=== PATIENT | female | born 1985 | race American Indian/Alaskan Native ===

== ENCOUNTER 2020-10-26 12:28 | Outpatient (CLI) | payer MEDICAID ==
[2020-10-26] MEDS ORDERED: BETAMET ACET/BETAMET NA PH 6 MG/ML INJ 5 ML MDV IM ONE (12:54)
[2020-10-26] MEDS ORDERED: BETAMET ACET/BETAMET NA PH 6 MG/ML INJ 5 ML MDV IM SCH (13:00)
== END 2020-10-26 13:05 | disposition home or self-care (01) ==
LOC: TRG 12:28 → APU 12:29 → TRG 13:05
PROVIDERS: ATTEND Obstetrics & Gynecology
DX: O47.03 False labor before 37 completed weeks of gestation, third trimester (principal); Z3A.33 33 weeks gestation of pregnancy
CPT/HCPCS: 96372; J0702; 96360

== ENCOUNTER 2020-10-27 12:40 | Outpatient (CLI) | payer MEDICAID ==
[2020-10-27] MEDS ORDERED: BETAMET ACET/BETAMET NA PH 6 MG/ML INJ 5 ML MDV IM NR (13:30)
== END 2020-10-27 13:55 | disposition home or self-care (01) ==
LOC: TRG 12:40 → APU 12:41 → TRG 13:55
PROVIDERS: ATTEND Obstetrics & Gynecology
DX: O47.03 False labor before 37 completed weeks of gestation, third trimester (principal); O99.513 Diseases of the respiratory system complicating pregnancy, third trimester; J45.909 Unspecified asthma, uncomplicated; O10.913 Unspecified pre-existing hypertension complicating pregnancy, third trimester; O99.283 Endocrine, nutritional and metabolic diseases complicating pregnancy, third trimester; E03.9 Hypothyroidism, unspecified; Z3A.33 33 weeks gestation of pregnancy
CPT/HCPCS: 96372; J0702

== ENCOUNTER 2020-11-06 14:22 | Inpatient (IN) | payer MEDICAID ==
[2020-11-06] MEDS ORDERED: MINERAL OIL 30 ML ORAL LIQD PO PRN (16:25)
[2020-11-06] MEDS ORDERED: TERBUTALINE 1 MG/1 ML INJ SUB-Q PRN (16:25)
[2020-11-06] MEDS ORDERED: BUTORPHANOL 2 MG/1 ML INJ IV PRN (16:25)
[2020-11-06] MEDS ORDERED: ONDANSETRON 4 MG/2 ML INJ IV PRN (16:25)
[2020-11-06] MEDS ORDERED: LIDOCAINE (2%) 20 MG/1 ML VIAL 20 ML MDV INFILTRATI ONE (16:25)
[2020-11-06] MEDS ORDERED: ePHEDrine SULFATE 50 MG/1 ML INJ IV PRN ×2 (16:25→20:11)
[2020-11-06] MEDS ORDERED: miSOPROStol 200 MCG TAB PR PRN (16:25)
[2020-11-06] MEDS ORDERED: METHYLERGONOVINE MALEATE 0.2 MG/ML VIAL IM PRN (16:25)
[2020-11-06] MEDS ORDERED: AMPICILLIN/NS 2 GM/100 ML 2 GM/100 ML BAG IV ONE (16:30)
[2020-11-06 16:43] LABS: Hemoglobin 11.9 gm/dl (10.1-14.3); Mean Corpuscular HGB Conc 36 % (30-34); Mean Corpuscular Volume 82 fl (79-97); Platelet Count 252 K/mm3 (140-440); Red Blood Count 4.03 M/mm3 (3.65-5.03); Red Cell Distribution Width 16.1 % (13.2-15.2)
[2020-11-06] MEDS ORDERED: OXYTOCIN DRIP 30 UNITS/500 ML BAG IV SCH ×2 (17:00)
[2020-11-06] MEDS: LACTATED RINGERS 1,000 ML IV SCH ×3 (17:02→21:09)
[2020-11-06] MEDS ORDERED: NalbUPHINE 10 MG/1 ML INJ IV PRN (20:11)
[2020-11-06] MEDS ORDERED: diphenhydrAMINE 50 MG/ML VIAL IV PRN (20:11)
[2020-11-06] MEDS ORDERED: NALOXONE 2 MG/2 ML INJ IV PRN (20:11)
[2020-11-06] MEDS ORDERED: AMPICILLIN/NS 1 GM/50 ML 1 GM/50 ML BAG IV SCH (20:30)
--- NOTE | 2020-11-06 20:50 | Anesthesia Consultation ---
Anesthesia Consult and Med Hx Date of service: 11/06/20 - Airway Anesthetic Teeth Evaluation: Good ROM Head & Neck: Adequate Mental/Hyoid Distance: Adequate Mallampati Class: Class II Intubation Access Assessment: Probably Good - Pulmonary Exam CTA: Yes - Cardiac Exam Cardiac Exam: RRR - Pre-Operative Health Status ASA Pre-Surgery Classification: ASA2 Proposed Anesthetic Plan: Epidural - Pulmonary Hx Smoking: Yes (Smokes AwesomePieceanna often) Hx Asthma: Yes (last used inhaler 6 yrs ago) COPD: No Hx Pneumonia: No Hx Sleep Apnea: No - Cardiovascular System Hx Hypertension: Yes (CHTN diagnosed 5 yrs ago) Hx Heart Attack/AMI: No Hx Angina: No - Central Nervous System Hx Seizures: No Hx Psychiatric Problems: Yes (depression-was taking Wellbutrin before ) - Gastrointestinal Hx Gastroesophageal Reflux Disease: No - Endocrine Hx Renal Disease: No Hx End Stage Renal Disease: No Hx Insulin Dependent Diabetes: No Hx Non-Insulin Dependent Diabetes: No Hx Hypothyroidism: Yes (taking levothyroxine) Hx Hyperthyroidism: No - Hematic Hx Anemia: No Hx Sickle Cell Disease: No - Other Systems Hx Alcohol Use: No Hx Substance Use: Yes (MAURIJUANA LAST USED 2 MONTHS AGO)
--- NOTE | 2020-11-06 20:55 | Progress Note ---
Labor Epidural - Labor Epidural Start Time: 20:21 Stop Time: 20:50 Performed by:: MENG LAWLER Procedure: Patient is requesting a laboring epidural for laboring pain. Patient IDed, H&P reviewed, all questions and concerns were answered, and consent was signed. Timeout was performed at bedside. Patient in sitting position. Sterile prep and drape was performed. 3ml of 1% lidocaine skin wheal at L[2]- L [3]. 18- gauge Touhy epidural needle was advanced without success. 3ml of 1% lidocaine skin wheal at L[3]- L [4]. 18-gauge Touhy epidural needle was advanced to loss of resistance with air technique.Negative CSF negative blood. Epidural catheter advanced to [14] centimeters. [-] Aspiration [-] test dose. Sterile dressing applied. Patient tolerated procedure.
[2020-11-06] MEDS ORDERED: fentaNYL-BUPIV 2 MCG/ML-0.125% 200 MCG/100 ML BAG EPIDURAL SCH (21:00)
[2020-11-07] MEDS ORDERED: diphenhydrAMINE 25 MG CAP PO PRN (00:01)
[2020-11-07] MEDS ORDERED: HYDROCORTISONE 25 MG RECTAL SUPP PR PRN (00:01)
[2020-11-07] MEDS ORDERED: WITCH HAZEL/ GLYCERIN PAD TP PRN (00:01)
--- NOTE | 2020-11-07 00:12 | History and Physical Report ---
History of Present Illness Date of examination: 11/07/20 Date of admission: 11/06/20 14:31 Chief complaint: My water broke today at 1:00PM History of present illness: Early entry to care, 1st and 2nd trimesters complicated by Hyperemesis, Co-managed with [facility] due to hx of Thyroid CA, Asthma, CHTN, and a hx of PTD. Also co-managed with Cardiology, Labetolol started at 19 weeks. Also taking, Synthroid, ASA 81mg, Wellbutrin, and Valayclovir. labor concern at 33 2/7 weeks; Received Betamethsome Series. 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 Family/Genetic History: diabetes, hypertension Social history: no significant social history, single, smoking (hx of THC use) - Obstetrical History Expected Date of Delivery: 12/12/20 Actual Gestation: 35 Week(s) 0 Day(s) : 5 Para: 3 Hx # Term Pregnancies: 1 Number of Pregnancies: 2 Induced : 1 Number of Living Children: 3 #1 Gender: Male year: 2,[birth year] Birthweight: 2.778 kg Method of Delivery: Vaginal Gestational age at delivery: 37 Complications: none #2 Infant Gender: Female year: 2,[birth year] Birthweight: 2.268 kg Method of Delivery: Vaginal Gestational age at delivery: 35 Complications: none #3 Infant Gender: Female year: 2,018 Birthweight: 1.899 kg Method of Delivery: Vaginal Gestational age at delivery: 34 Medications and Allergies Allergies Allergy/AdvReac Type Severity Reaction Status Date / Time No Known Allergies Allergy Verified 04/27/14 13:16 Home Medications Medication Instructions Recorded Confirmed Last Taken Type No Known Home Medications [No 04/10/15 04/10/15 Unknown History Reported Home Medications] Active Meds: Active Medications Hydrocodone Bitart/Acetaminophen (Hydrocodone/Acetaminophen 5-325 Mg Tab) 2 each PO Q6H PRN PRN Reason: Pain, Moderate (4-6) Bisacodyl (Bisacodyl 10 Mg Rect Supp) 10 mg LA BID PRN PRN Reason: Constipation Butorphanol Tartrate (Butorphanol 2 Mg/1 Ml Inj) 2 mg IV Q2H PRN PRN Reason: Pain , Severe (7-10) Last Admin: 11/06/20 18:26 Dose: 2 mg Documented by: Diphenhydramine HCl (Diphenhydramine 50 Mg/Ml Vial) 12.5 mg IV Q2H PRN PRN Reason: Itching Diphenhydramine HCl (Diphenhydramine 25 Mg Cap) 25 mg PO Q6H PRN PRN Reason: Itching Ephedrine Sulfate (Ephedrine Sulfate 50 Mg/1 Ml Inj) 10 mg IV Q2M PRN PRN Reason: Hypotension Hydrocortisone Acetate (Hydrocortisone 25 Mg Rectal Supp) 25 mg LA BID PRN PRN Reason: Hemorrhoids Oxytocin/Sodium Chloride (Pitocin/Ns 30 Unit/500ml) 30 units in 500 mls @ 2 mls/hr IV TITR PADMINI; Protocol Last Admin: 11/06/20 22:16 Dose: 2 ml/hr, 2 mls/hr Documented by: Lactated Ringer's (Lactated Ringers) 1,000 mls @ 125 mls/hr IV DIRECT PADMINI Last Admin: 11/06/20 21:09 Dose: 1,200 mls/hr Documented by: Oxytocin/Sodium Chloride (Pitocin/Ns 30 Unit/500ml) 30 units in 500 mls @ 40 mls/hr IV TITR PADMINI; Protocol Ampicillin Sodium (Ampicillin/Ns 1 Gm/50 Ml) 1 gm in 50 mls @ 100 mls/hr IV Q4H PADMINI; Protocol Last Admin: 11/06/20 21:33 Dose: 100 mls/hr Documented by: Fentanyl/Bupivacaine/Sodium Chlor (Fentanyl-Bupiv 2 Mcg/Ml-0.125%) 200 mcg in 100 mls @ 12 mls/hr EPIDURAL TITR PADMINI; Protocol Last Admin: 11/06/20 21:24 Dose: 12 mls/hr Documented by: Ibuprofen (Ibuprofen 600 Mg Tab) 600 mg PO Q6H PADMINI Methylergonovine Maleate (Methylergonovine Maleate 0.2 Mg/Ml Vial) 0.2 mg IM ONCE PRN PRN Reason: Uterine Bleeding Mineral Oil (Mineral Oil 30 Ml Oral Liqd) 30 ml PO QHS PRN PRN Reason: Constipation Misoprostol (Misoprostol 200 Mcg Tab) 800 mcg LA ONCE PRN PRN Reason: Uterine Bleeding Nalbuphine HCl (Nalbuphine 10 Mg/1 Ml Inj) 2.5 mg IV Q2H PRN PRN Reason: Itching Naloxone HCl (Naloxone 2 Mg/2 Ml Inj) 0.2 mg IV Q5M PRN PRN Reason: Respiratory sedation Ondansetron HCl (Ondansetron 4 Mg/2 Ml Inj) 4 mg IV Q8H PRN PRN Reason: Nausea And Vomiting Sodium Chloride (Sodium Chloride 0.9% 10 Ml Flush Syringe) 10 ml IV PRN NR Terbutaline Sulfate (Terbutaline 1 Mg/1 Ml Inj) 0.25 mg SUB-Q ONCE PRN PRN Reason: Hyperstimulation/Hypertonicity Witch Santa/Glycerin (Witch Santa/ Glycerin Pad) 1 each TP PRN PRN PRN Reason: Hemorrhoid/cleansing/soothing Review of Systems All systems: negative - Vital Signs Vital signs: Vital Signs Temp Resp 98.4 F 20 11/06/20 15:30 11/06/20 15:30 Temp Pulse Resp BP Pulse Ox 99.1 F 106 H 20 166/107 99 11/06/20 17:30 11/07/20 00:03 11/06/20 15:30 11/06/20 23:48 11/07/20 00:03 - Physical Exam Breasts: Positive: normal Cardiovascular: Regular rate Lungs: Positive: Clear to auscultation, Normal air movement Abdomen: Positive: normal appearance, soft, normal bowel sounds Genitourinary (Female): Positive: normal external genitalia, normal perenium Vagina: Positive: normal moisture Uterus: Positive: enlarged Anus/Rectum: Positive: normal perianal skin - Obstetrical FHR: category 1 Uterine Contraction Monitor Mode: External Cervical Dilatation: 3 (leaking a large amount of clear fluid) Cervical Effacement Percentage: 60 station: -3 Uterine Contraction Pattern: Regular Uterine Tone Measurement Phase: Resting Uterine Contraction Intensity: Moderate Results Result Diagrams: 11/06/20 15:50 Abnormal lab results 11/06/20 Range/Units 15:50 WBC 11.6 H (4.5-11.0) K/mm3 MCHC 36 H (30-34) % RDW 16.1 H (13.2-15.2) % All other labs normal. Assessment and Plan A: IUP @ 34 6/7 Weeks Category I Tracing PROM GBS Unknown CHTN P: Admit to L&D Per Routine Orders GBS Prophylaxis Pitocin Augmentation
--- NOTE | 2020-11-07 00:28 | Procedure Note ---
OB Delivery Note - Delivery Date of Delivery: 11/06/20 (2341) Surgeon: TRAVIS SAEED Estimated blood loss: 100cc - Vaginal Delivery presentation: vertex Delivery position: OA Intrapartum events: labor-<37 weeks, PROM->1hr before delivery Delivery induction: none Delivery augmentation: pitocin Delivery monitor: external FHT, external uterine Route of delivery: Delivery placenta: spontaneous Delivery cord: 3 umbilical vessels Episiotomy: none Delivery laceration: none Anesthesia: epidural Delivery comments: of a live 5'4 male infant over a intact perineum under epidural anesthesia with Apgars of 8 and 9 at 2341 on 11/06/2020. Cord double clamped and cut and placed on warmer to awaiting NICU team due to delivery. Spontaneous delivery of placenta complete and intact with Fraga side presenting at 2346. Fundus is firm and midline located 4 below the U. Lochia is scant. Cord blood gasses collected X2. Cord blood also collected. Placenta to pathology. GBS Prophylaxis x 2.
[2020-11-07] MEDS: HYDROcodone/ACETAMINOPHEN 5-325 MG TAB PO PRN ×3 (02:55→18:43)
[2020-11-07] MEDS: IBUPROFEN 600 MG TAB PO SCH ×3 (06:34→20:45)
[2020-11-07] MEDS: LEVOTHYROXINE 150 MCG TAB PO SCH (06:34)
--- NOTE | 2020-11-07 10:43 | Discharge Summary ---
Providers - Providers Date of Admission: 11/06/20 14:31 Date of discharge: 11/08/20 Attending physician: NAFISA HANCOCK JR, MD Primary care physician: NAFISA HANCOCK JR, MD Hospitalization Reason for admission: active labor Delivery: Episiotomy: none Laceration: none Other procedures: none complications: none Discharge diagnosis: other (Hypothyroidism; HTN), delivery baby: male Hospital course: See admission H & P; delivery summary and PP progress notes Condition at discharge: Good Disposition: DC-01 TO HOME OR SELFCARE - Discharge Diagnoses (1) Status post normal vaginal delivery Status: Acute (2) Hypothyroidism Status: Acute (3) Hypertension Status: Acute Plan - Discharge Medications Prescriptions: labetaloL [Labetalol 200mg TAB] 200 mg PO BID 14 Days #28 tablet - Provider Discharge Summary Activity: routine, no sex for 6 weeks, no heavy lifting 4 weeks, no strenuous exercise Diet: other (Iron rich diet) Instructions: routine Additional instructions: [] Smoking cessation referral if applicable(refer to patient education folder for contact #) [] Refer to [facility] Booklet Call your doctor immediately for: * Fever > 100.5 * Heavy vaginal bleeding ( >1 pad per hour) * Severe persistent headache * Shortness of breath * Reddened, hot, painful area to leg or breast * Follow up at office in 7 days for B/P check - Follow up plan Follow up: NAFISA HANCOCK JR, MD [Primary Care Provider] - 7 Days
--- NOTE | 2020-11-07 12:47 | Post Anesthesia Evaluation ---
- Post Anesthesia Evaluation Patient Participated: Yes Airway Patent: Yes Stable Respiratory Function: Yes Nausea/Vomiting: No Temp > 96.8F: Yes Pain Manageable: Yes Adequeate Hydration: Yes Anesthesia Complications: No Block Receding Appropriately: Yes Patient on Ventilator: No
[2020-11-07 14:12] LABS: Hemoglobin 11.7 gm/dl (10.1-14.3)
[2020-11-08] MEDS: HYDROcodone/ACETAMINOPHEN 5-325 MG TAB PO PRN ×3 (01:12→19:14)
[2020-11-08] MEDS: IBUPROFEN 600 MG TAB PO SCH ×4 (03:28→19:15)
[2020-11-08] MEDS: LEVOTHYROXINE 150 MCG TAB PO SCH (05:17)
[2020-11-09] MEDS: IBUPROFEN 600 MG TAB PO SCH ×2 (03:53→10:23)
[2020-11-09] MEDS: HYDROcodone/ACETAMINOPHEN 5-325 MG TAB PO PRN (03:54)
[2020-11-09] MEDS: LEVOTHYROXINE 150 MCG TAB PO SCH (05:34)
[2020-11-09 09:17] VITALS: BP 119/79
== END 2020-11-09 11:24 | disposition home or self-care (01) | DRG 774 ==
LOC: TRG 14:22 → APU 14:24 → TRG 14:30 → LD 14:31 → OB 11-07 01:50
PROVIDERS: ADMIT Obstetrics & Gynecology; ATTEND Obstetrics & Gynecology
PROC: 10E0XZZ Delivery of Products of Conception, External Approach (ICD-10-PCS; principal; 2020-11-06)
PROC: 3E0R3BZ Introduction of Anesthetic Agent into Spinal Canal, Percutaneous Approach (ICD-10-PCS; 2020-11-06)
PROC: 00HU33Z Insertion of Infusion Device into Spinal Canal, Percutaneous Approach (ICD-10-PCS; 2020-11-06)
DX: O42.013 Preterm premature rupture of membranes, onset of labor within 24 hours of rupture, third trimester (principal); O10.92 Unspecified pre-existing hypertension complicating childbirth; O99.344 Other mental disorders complicating childbirth; F32.9 Major depressive disorder, single episode, unspecified; O99.284 Endocrine, nutritional and metabolic diseases complicating childbirth; O98.32 Other infections with a predominantly sexual mode of transmission complicating childbirth; A60.09 Herpesviral infection of other urogenital tract; O99.52 Diseases of the respiratory system complicating childbirth; J45.909 Unspecified asthma, uncomplicated; K21.9 Gastro-esophageal reflux disease without esophagitis; Z3A.35 35 weeks gestation of pregnancy; Z37.0 Single live birth
CPT/HCPCS: 36415; 82805; 85014; 85018; 85027; 86592; 86850; 86900; 86901; 88307; G0378; J0290; J0595; J2590; J7120; U0003

== ENCOUNTER 2020-11-09 20:40 | Observation (INO) | payer MEDICAID, OTHER ==
--- NOTE | 2020-11-09 20:47 | Event Note ---
ED Screening Note ED Screening Note: post delivered this week htn known pre eclampsia a/o This initial assessment/diagnostic orders/clinical plan/treatment(s) is/are subject to change based on patients health status, clinical progression and re- assessment by fellow clinical providers in the ED. Further treatment and workup at subsequent clinical providers discretion. Patient/guardian urged not to elope from the ED as their condition may be serious if not clinically assessed and managed. Initial orders include: eval for eclampsia
[2020-11-09 21:29] LABS: Bacteria,Urine 1+ /HPF (Negative); Bilirubin,Urine NEG (Negative); Blood,Urine LG (Negative); Color,Urine Straw (Yellow); Protein,Urine <15 mg/dL mg/dL (Negative); Urobilinogen,Urine < 2.0 mg/dL (<2.0)
[2020-11-09 21:37] LABS: Basophils % (Auto) 0.4 % (0.0-1.8); Eosinophils # (Auto) 0.1 K/mm3 (0.0-0.4); Hematocrit 35.2 % (30.3-42.9); Hemoglobin 12.1 gm/dl (10.1-14.3); Lymphocytes # (Auto) 2.1 K/mm3 (1.2-5.4); Lymphocytes % (Auto) 21.1 % (13.4-35.0); Mean Corpuscular HGB Conc 35 % (30-34); Mean Corpuscular Volume 83 fl (79-97); Monocytes # (Auto) 0.7 K/mm3 (0.0-0.8); Monocytes % (Auto) 7.1 % (0.0-7.3); Platelet Count 247 K/mm3 (140-440); Red Blood Count 4.25 M/mm3 (3.65-5.03); Red Cell Distribution Width 16.2 % (13.2-15.2)
--- NOTE | 2020-11-09 21:43 | XRay Report ---
CHEST PA AND LATERAL VIEWS INDICATION: MAIN. COMPARISON: None FINDINGS: Support devices: None Heart: Normal Lungs/Pleura: No acute pulmonary or pleural findings. IMPRESSION: 1. No active disease. Signer Name: Aldo Barnes MD Signed: 11/09/2020 9:39 PM Workstation Name: [id number]
[2020-11-09 21:57] LABS: Uric Acid 4.3 mg/dL (3.5-7.6)
[2020-11-09 21:58] LABS: Alanine Aminotransferase 16 units/L (7-56); Albumin 3.4 g/dL (3.9-5); Blood Urea Nitrogen 7 mg/dL (7-17); Calcium 9.3 mg/dL (8.4-10.2); Hemolysis Index 2
[2020-11-09 22:02] LABS: BUN/Creatinine Ratio 12
[2020-11-10] MEDS ORDERED: MAGNESIUM SULFATE 4 GM/100 ML BAG IV ONE (01:55)
[2020-11-10] MEDS ORDERED: CALCIUM GLUCONATE 1000 MG/10 ML INJ IV ONE (01:55)
[2020-11-10] MEDS ORDERED: LACTATED RINGERS 1,000 ML IV SCH (02:00)
[2020-11-10] MEDS: ACETAMINOPHEN 325 MG TAB PO PRN ×3 (02:30→18:08)
[2020-11-10] MEDS: MAGNESIUM SULFATE 40GM/1000ML 40 GM/1,000 ML BAG IV SCH ×2 (02:55→21:51)
--- NOTE | 2020-11-10 08:08 | History and Physical Report ---
History of Present Illness Date of examination: 11/10/20 Date of admission: 11/10/20 Chief complaint: Pt presented to [facility] ob triage with c/o elevated b/p, eldridge,and dizziness. History of present illness: 35 y/o presented to [facility] ob triage with c/o elevated b/ps 160s/100s, eldridge, and dizziness. Pt has a Hx of a on 11/06/20 at [facility]. She was d/c'd home in stable condition on Labetalol 200mg po bid. She has a med hx of CHTN, preeclampsia, thyroid ca, hypothyroidism, GERD, asthma, abnormal pap, HSV II and depression. Surgical hx of dietician uterine surg 2013, thyroid surg 2014, Ca surg (thyroid) 2014, breast aug,buttocks, and lipo surgery. Social hx of THC abuse. Family hx of DM and HTN. Pt's b/p was 158/99 in triage. She was admitted to L&D and started on MgS04. POC was notified of pt's status and agreed with plan. 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 Family/Genetic History: diabetes, hypertension Social history: single, full code, other (thc abuse) - Obstetrical History : 6 Para: 4 Spontaneous Abortions: 1 Induced : 1 Medications and Allergies Allergies Allergy/AdvReac Type Severity Reaction Status Date / Time No Known Allergies Allergy Verified 04/27/14 13:16 Home Medications Medication Instructions Recorded Confirmed Last Taken Type Levothyroxine [Synthroid] 150 mcg PO DAILY@0600 tablet 11/07/20 Unknown Rx labetaloL [Labetalol 200mg TAB] 200 mg PO BID 14 Days #28 tablet 11/07/20 Unknown Rx Active Meds: Active Medications Acetaminophen (Acetaminophen 325 Mg Tab) 650 mg PO Q6H PRN PRN Reason: Pain, Mild (1-3) Last Admin: 11/10/20 02:30 Dose: 650 mg Documented by: Lactated Ringer's (Lactated Ringers) 1,000 mls @ 125 mls/hr IV DIRECT PADMINI Last Admin: 11/10/20 02:15 Dose: 75 mls/hr Documented by: Magnesium Sulfate (Magnesium Sulfate 40gm/1000ml) 40 gm in 1,000 mls @ 50 mls/hr IV DIRECT PADMINI Last Admin: 11/10/20 02:55 Dose: 2 gm/hr, 50 mls/hr Documented by: Labetalol HCl (Labetalol 200 Mg Tab) 200 mg PO BID [facility] Levothyroxine Sodium (Levothyroxine 150 Mcg Tab) 150 mcg PO DAILY@0600 [facility] Review of Systems All systems: negative Eyes: deferred Ears, nose, mouth and throat: deferred Breasts: normal Genitourinary: normal appearance, vaginal bleeding Rectal Exam: deferred - Vital Signs Vital signs: Vital Signs Pulse Resp BP Pulse Ox 89 16 158/99 98 11/09/20 23:02 11/09/20 23:02 11/09/20 23:02 11/09/20 23:02 Temp Pulse Resp BP Pulse Ox 97.9 F 91 H 16 127/86 95 11/10/20 07:50 11/10/20 08:00 11/10/20 07:50 11/10/20 07:50 11/10/20 08:00 - Physical Exam Breasts: Positive: normal Abdomen: Positive: normal appearance, soft, normal bowel sounds Genitourinary (Female): Positive: normal external genitalia, normal perenium Vulva: both: normal Vagina: Positive: normal moisture Uterus: Positive: normal size, normal contour Anus/Rectum: Positive: normal perianal skin Extremities: Positive: normal Results Result Diagrams: 11/09/20 21:01 11/09/20 21:01 Abnormal lab results 11/09/20 11/09/20 11/09/20 Range/Units 21:01 21:01 Unknown MCHC 35 H (30-34) % RDW 16.2 H (13.2-15.2) % Seg Neutrophils % 70.4 H (40.0-70.0) % Albumin 3.4 L (3.9-5) g/dL Ur Specific [place] 1.002 L (1.003-1.030) All other labs normal. Assessment and Plan A: S/P CHTN R/O preeclampsia Thyroid ca Asthma, hx depression HSV II P: Admit to L&D PIH labs Start MgS04 per protocal Mg levels q6h Monitor b/ps Continue Labetalol as prescribed POC agrees with plan - Patient Problems (1) Chronic hypertension Current Visit: Yes Status: Acute
[2020-11-10] MEDS: LEVOTHYROXINE 150 MCG TAB PO SCH (09:30)
[2020-11-11] MEDS: ACETAMINOPHEN 325 MG TAB PO PRN ×2 (05:51→10:01)
[2020-11-11] MEDS: LEVOTHYROXINE 150 MCG TAB PO SCH (05:52)
--- NOTE | 2020-11-11 10:49 | Progress Note ---
Assessment and Plan A: preeclampsia and chronic hypertension. S/P 5 days ago. BPs stable on Labetalol. P: Continue Labetalol 200 mg po BID. Monitor BPs. Anticipate discharge home in 24-48 hours if doing well. Subjective - Subjective Date of service: 11/11/20 Principal diagnosis: preeclampsia; chronic hypertension Interval history: Magnesium Sulfate was stopped earlier this morning; patient is now on the mother baby unit. Patient reports: appetite normal, voiding normally, pain well controlled, flatus, ambulating normally, no dizzy ambulation, no nauseated Objective - Vital Signs Latest vital signs: Vital Signs Temp Pulse Resp BP BP Pulse Ox 11/11/20 10:30 123/84 11/11/20 08:29 97.6 F 91 H 18 123/81 97 11/11/20 05:51 20 11/11/20 05:15 98.2 F 76 20 135/89 99 11/11/20 04:17 82 125/85 11/11/20 04:01 82 135/91 11/11/20 02:46 85 99 11/11/20 02:41 88 97 11/11/20 02:36 86 98 11/11/20 02:31 91 H 100 11/11/20 02:26 86 97 11/11/20 02:25 86 91 11/11/20 02:21 86 93 11/11/20 02:19 88 92 11/11/20 02:17 83 133/84 11/11/20 02:16 87 97 11/11/20 02:13 110 H 91 11/11/20 02:11 82 98 11/11/20 02:06 82 99 11/11/20 02:01 84 99 11/11/20 01:56 83 100 11/11/20 01:51 97 H 92 11/11/20 01:46 80 96 11/11/20 01:41 97 H 94 11/11/20 01:40 98 H 94 11/11/20 01:36 83 98 11/11/20 01:31 85 99 11/11/20 01:26 80 99 11/11/20 01:21 84 97 11/11/20 01:17 88 131/74 93 11/11/20 01:16 82 96 11/11/20 01:11 79 97 11/11/20 01:06 82 96 11/11/20 01:02 89 94 11/11/20 01:01 85 96 11/11/20 00:56 83 96 11/11/20 00:51 85 95 11/11/20 00:47 80 93 11/11/20 00:46 80 96 11/11/20 00:41 80 96 11/11/20 00:36 80 96 11/11/20 00:31 82 96 11/11/20 00:26 80 96 11/11/20 00:21 79 97 11/11/20 00:17 78 120/80 11/11/20 00:16 81 97 11/11/20 00:11 80 97 11/11/20 00:06 79 97 11/11/20 00:01 78 98 11/10/20 23:56 80 98 11/10/20 23:51 83 98 11/10/20 23:46 84 100 11/10/20 23:41 87 100 11/10/20 23:36 84 100 11/10/20 23:31 87 99 11/10/20 23:26 87 98 11/10/20 23:21 82 98 11/10/20 23:17 86 129/86 11/10/20 23:16 90 90 11/10/20 23:15 83 94 11/10/20 23:11 92 H 96 11/10/20 23:06 89 98 11/10/20 23:01 89 98 11/10/20 22:56 90 99 11/10/20 22:51 89 100 11/10/20 22:46 90 100 11/10/20 22:41 89 98 11/10/20 22:36 88 99 11/10/20 22:30 87 99 11/10/20 22:26 88 99 11/10/20 22:21 87 99 11/10/20 22:17 90 129/80 11/10/20 22:16 89 98 11/10/20 22:11 90 99 11/10/20 22:06 87 99 11/10/20 22:01 86 92 11/10/20 22:00 72 91 11/10/20 21:56 86 99 11/10/20 21:50 88 133/86 99 11/10/20 21:47 98.1 F 18 11/10/20 21:46 87 99 11/10/20 21:41 85 99 11/10/20 21:36 87 100 11/10/20 21:31 86 96 11/10/20 21:26 87 100 11/10/20 21:21 91 H 99 11/10/20 21:17 88 133/86 11/10/20 21:15 95 H 99 11/10/20 21:11 90 99 11/10/20 21:06 98 H 98 11/10/20 21:01 95 H 99 11/10/20 20:56 99 H 98 11/10/20 20:51 94 H 99 11/10/20 20:46 97 H 98 11/10/20 20:41 93 H 95 11/10/20 20:38 95 H 93 11/10/20 20:36 94 H 98 11/10/20 20:31 91 H 99 11/10/20 20:25 94 H 100 11/10/20 20:23 84 85 11/10/20 20:20 94 H 97 11/10/20 20:17 88 132/92 11/10/20 20:16 90 94 11/10/20 20:10 94 H 98 11/10/20 20:06 96 H 97 11/10/20 20:02 93 H 88 11/10/20 20:00 94 H 98 11/10/20 19:56 90 98 11/10/20 19:50 99 H 98 11/10/20 19:46 93 H 97 11/10/20 19:40 95 H 97 11/10/20 19:35 96 H 98 11/10/20 19:31 97 H 99 11/10/20 19:26 96 H 99 11/10/20 19:21 96 H 100 11/10/20 19:18 100 H 93 11/10/20 19:17 93 H 129/83 11/10/20 19:16 95 H 100 11/10/20 19:11 94 H 99 11/10/20 19:06 95 H 100 11/10/20 19:00 93 H 100 11/10/20 18:55 88 99 11/10/20 18:51 95 H 94 11/10/20 18:50 91 H 94 11/10/20 18:46 87 140/90 99 11/10/20 18:40 94 H 95 11/10/20 18:36 91 H 97 11/10/20 18:31 91 H 100 11/10/20 18:26 91 H 100 11/10/20 18:20 87 95 11/10/20 18:17 80 163/96 11/10/20 18:15 88 88 11/10/20 18:14 89 84 11/10/20 18:10 93 H 100 11/10/20 18:09 94 H 85 11/10/20 18:05 89 99 11/10/20 18:00 88 100 11/10/20 17:56 92 H 94 11/10/20 17:55 95 H 98 11/10/20 17:51 91 H 84 11/10/20 17:50 88 90 11/10/20 17:46 89 100 11/10/20 17:40 82 100 11/10/20 17:36 94 H 86 11/10/20 17:34 89 93 11/10/20 17:30 92 H 100 11/10/20 17:26 88 91 11/10/20 17:21 91 H 100 11/10/20 17:18 72 148/93 77 L 11/10/20 17:15 90 98 11/10/20 17:10 91 H 98 11/10/20 17:05 92 H 99 11/10/20 17:00 88 99 11/10/20 16:55 98 H 99 11/10/20 16:51 95 H 99 11/10/20 16:49 88 88 11/10/20 16:45 90 99 11/10/20 16:40 91 H 98 11/10/20 16:36 89 100 11/10/20 16:35 88 77 L 11/10/20 16:31 90 100 11/10/20 16:26 102 H 92 11/10/20 16:20 95 H 100 11/10/20 16:17 95 H 114/65 11/10/20 16:16 92 H 100 11/10/20 16:11 94 H 100 11/10/20 16:05 91 H 96 11/10/20 16:00 91 H 99 11/10/20 15:56 88 100 11/10/20 15:51 87 99 11/10/20 15:46 86 99 11/10/20 15:41 90 95 11/10/20 15:35 85 98 11/10/20 15:30 84 97 11/10/20 15:26 86 98 11/10/20 15:20 86 99 11/10/20 15:17 83 114/73 11/10/20 15:16 84 98 11/10/20 15:10 85 98 11/10/20 15:06 83 98 11/10/20 15:00 83 97 11/10/20 14:56 83 98 11/10/20 14:50 83 99 11/10/20 14:45 85 100 11/10/20 14:40 86 98 11/10/20 14:36 89 98 11/10/20 14:31 88 96 11/10/20 14:25 85 97 11/10/20 14:21 90 95 11/10/20 14:17 85 124/73 11/10/20 14:15 90 98 11/10/20 14:11 94 H 97 11/10/20 14:05 93 H 97 11/10/20 14:00 98 H 95 11/10/20 13:59 93 H 94 11/10/20 13:55 96 H 96 11/10/20 13:50 85 96 11/10/20 13:45 86 97 11/10/20 13:41 97 H 97 11/10/20 13:36 98 H 97 11/10/20 13:30 98 H 97 11/10/20 13:25 97 H 98 11/10/20 13:20 101 H 98 11/10/20 13:17 96 H 108/65 11/10/20 13:15 98 H 98 11/10/20 13:10 96 H 98 11/10/20 13:06 99 H 99 11/10/20 13:00 94 H 99 11/10/20 12:55 90 99 11/10/20 12:51 93 H 94 11/10/20 12:49 91 H 91 11/10/20 12:45 93 H 100 11/10/20 12:39 93 H 100 11/10/20 12:35 95 H 100 11/10/20 12:30 95 H 100 11/10/20 12:24 91 H 100 11/10/20 12:19 88 100 11/10/20 12:17 86 125/78 11/10/20 12:14 88 100 11/10/20 12:09 88 97 11/10/20 12:05 94 H 99 11/10/20 11:59 90 96 01/01/21 11:54 84 100 11/10/20 11:51 86 86 11/10/20 11:49 83 100 11/10/20 11:44 88 99 11/10/20 11:39 85 100 11/10/20 11:35 89 100 11/10/20 11:29 88 99 11/10/20 11:24 83 99 11/10/20 11:19 90 99 11/10/20 11:17 82 131/83 11/10/20 11:14 86 99 11/10/20 11:09 86 99 11/10/20 11:04 85 100 11/10/20 10:59 88 99 11/10/20 10:54 83 99 11/10/20 10:49 89 99 Intake and Output 11/10/20 11/11/20 11/11/20 23:59 07:59 15:59 Intake Total 1306.667 240 Output Total 2800 1500 Balance -1493.333 -1260 Intake: IV 946.667 MAGNESIUM SULFATE 40GM/ 946.667 1000ML 40 gm In 1,000 ml @ 2 GM/HR 50 mls/hr IV DIRECT PADMINI Rx#:[id number] Oral 360 240 Output: Urine 2800 1500 Indwelling Catheter 2800 900 Void 600 Other: Total, Intake Amount 360 240 Total, Output Amount 900 600 - Exam Cardiovascular: Present: Regular rate Lungs: Present: Clear to auscultation Abdomen: Present: normal appearance, soft, normal bowel sounds. Absent: distention, tenderness, guarding, rigidity Uterus: Present: normal, firm, fundal height below umbilicus. Absent: bogginess, tenderness Extremities: Present: edema (mild bilateral pedal edema) - Labs Labs: Abnormal lab results 11/10/20 11/10/20 11/11/20 Range/Units 13:18 17:49 01:41 Magnesium 5.70 H 5.80 H 6.70 H (1.7-2.3) mg/dL
[2020-11-12] MEDS: LEVOTHYROXINE 150 MCG TAB PO SCH (06:46)
--- NOTE | 2020-11-12 10:39 | Progress Note ---
Assessment and Plan A: Day 8 S/P . Chronic hypertension; preeclampsia. BPs controlled on Labetalol 200 mg po BID. P: Discharge patient home today. Advised patient to continue taking Labetalol 200 mg po BID at home; Rx for Labetalol 200 mg po BID sent to [facility] pharmacy on [address]. Advised patient to follow up at [facility] office on 11/14/2019 for BP check. Advised patient to rest at home and to avoid intercourse, lifting, driving, heavy housework. BP warning signs discussed in detail with patient. Advised patient to continue taking her vitamin daily. Patient voiced understanding of all instructions. Subjective - Subjective Date of service: 11/12/20 Principal diagnosis: preeclampsia; chronic hypertension Interval history: Patient requests discharge home today. Patient denies headache, chest pain, cough, shortness of breath, leg pain, visual disturbance, nausea or any other problems. Patient reports: appetite normal, voiding normally, pain well controlled, flatus, ambulating normally, no dizzy ambulation, no nauseated [place]: doing well Objective - Vital Signs Latest vital signs: Vital Signs Temp Pulse Resp BP BP Pulse Ox 11/12/20 10:21 80 142/83 11/12/20 08:22 98.0 F 58 L 18 140/83 97 11/12/20 04:31 98.5 F 83 20 130/79 96 11/12/20 00:00 99.1 F 79 20 131/86 99 11/11/20 23:25 79 131/86 11/11/20 20:19 98.2 F 95 H 20 125/83 99 11/11/20 17:12 97.6 F 89 18 131/88 96 11/11/20 12:34 97.9 F 81 18 126/85 95 Intake and Output 11/11/20 11/12/20 11/12/20 23:59 07:59 15:59 Intake Total 240 480 Balance 240 480 Intake: Oral 240 Intake, Free Water 240 240 Other: Total, Intake Amount 240 # Voids Indwelling Catheter 1 Void 1 1 - Exam Cardiovascular: Present: Regular rate Lungs: Present: Clear to auscultation Abdomen: Present: normal appearance, soft, normal bowel sounds. Absent: distention, tenderness, guarding, rigidity Uterus: Present: normal, firm, fundal height below umbilicus. Absent: bogginess, tenderness Extremities: Present: normal. Absent: tenderness, edema
--- NOTE | 2020-11-12 10:43 | Discharge Summary ---
Providers - Providers Date of Admission: 11/10/20 01:55 Date of discharge: 11/12/20 Attending physician: NAFISA HANCOCK JR, MD Primary care physician: NAFISA HANCOCK JR, MD Hospitalization Reason for admission: other ( preeclampsia; chronic hypertension) complications: other ( preeclampsia) Pertinent studies: Labs Hospital course: Stable hospital course Condition at discharge: Good Disposition: DC-01 TO HOME OR SELFCARE - Discharge Diagnoses (1) Chronic hypertension Status: Acute (2) Pre-eclampsia, Status: Acute Plan - Provider Discharge Summary Activity: no sex for 6 weeks, no heavy lifting 4 weeks, no strenuous exercise, other (Rest at home) Diet: routine Instructions: routine Additional instructions: Continue taking Labetalol 200 mg po BID at home. (Rx has been sent to [facility] pharmacy on [address]). Follow up at [facility] on 11/14/2020. Call your doctor immediately for: * Fever > 100.5 * Heavy vaginal bleeding ( >1 pad per hour) * Severe persistent headache * Shortness of breath * Reddened, hot, painful area to leg or breast - Follow up plan Follow up: NAFISA HANCOCK JR, MD [Primary Care Provider] - 11/14/20
[2020-11-12 11:19] VITALS: BP 142/88
== END 2020-11-12 11:30 | disposition home or self-care (01) ==
LOC: TRG 11-10 00:47 → LD 11-10 00:49 → TRG 11-10 01:55 → OB 11-10 01:55
PROVIDERS: ADMIT Obstetrics & Gynecology; ATTEND Obstetrics & Gynecology
DX: O11.5 Pre-existing hypertension with pre-eclampsia, complicating the puerperium (principal); C73 Malignant neoplasm of thyroid gland; K21.9 Gastro-esophageal reflux disease without esophagitis; J45.909 Unspecified asthma, uncomplicated; F32.9 Major depressive disorder, single episode, unspecified; Z90.49 Acquired absence of other specified parts of digestive tract; Z98.890 Other specified postprocedural states; Z79.899 Other long term (current) drug therapy
CPT/HCPCS: 36415; 71046; 80053; 81001; 83735; 83880; 84484; 84550; 85025; 93005; 96365; 96366; G0378; J3475; J7120